=== PATIENT | male | born 1970 | race African-American/Black ===

== ENCOUNTER 2020-08-01 13:10 | Inpatient (IN) ==
[2020-08-01] MEDS ORDERED: MORPHINE 4 MG/1 ML VIAL IV PRN (18:46)
[2020-08-01] MEDS ORDERED: ZALEPLON 5 MG CAPSULE PO PRN (18:46)
[2020-08-01] MEDS ORDERED: DEXTROSE 50% 25 GM/50 ML VIAL IV PRN (18:46)
[2020-08-01] MEDS ORDERED: GLUCAGON 1 MG VIAL IM PRN (18:46)
[2020-08-01 20:10] LABS: Basophils % 0.4 % (0.0-0.8); Eosinophils % 0.4 % (0.00-10.9); Hematocrit 23.4 VOL% (42.0-52.0); Hemoglobin 8.6 GM/DL (14.0-18.0); Immature Granulocytes % 0.4 %; Immature Granulocytes Absolute 0.02 #; Lymphocytes # 1.4 10*3/uL (1.4-4.0); Lymphocytes % 26.8 % (21.2-54.2); Mean Corpuscular HGB Conc 36.8 GM/DL (32-36); Mean Corpuscular Volume 101.3 FL (87-102); Mean Platelet Volume 11.1 FL (9.6-12.0); Monocytes % 15.7 % (1.7-12.7); NRBC # 0.03 10*3/uL; Neutrophils % 56.3 % (38.7-73.9); Platelet Count 69 T/CUMM (130-400); Red Blood Count 2.31 MC/CUMM (3.8-5.5); Red Cell Distribution Width 20.6 % (9.3-17.3); White Blood Count 5.3 T/CUMM (4-12)
[2020-08-01 20:23] LABS: INR 2.1
[2020-08-01 20:33] LABS: Albumin 1.8 G/DL (3.4-5.0); Bilirubin,Total 5.7 MG/DL (0.2-1.0); Calcium 7.4 MG/DL (8.5-10.1); Osmolality,Calculated 262.4 MOS/KG (273-304); Potassium 3.2 MMOL/L (3.5-5.1); Total Protein 6.4 G/DL (6.4-8.3)
[2020-08-01 20:54] LABS: PT Patient Result 21.3 SECS (9.8-11.9)
[2020-08-01] MEDS: PIPERACILLIN/TAZOBACTAM 3,375 MG in SODIUM CHLORIDE 0.9% 100 ML IV SCH (21:26)
[2020-08-01] MEDS: levETIRAcetam 500 MG TABLET PO SCH (21:33)
[2020-08-02] MEDS: LORazepam 2 MG/1 ML VIAL IV PRN ×2 (01:18→04:29)
[2020-08-02] MEDS: POTASSIUM CHLORIDE 20 MEQ TABLET PO PRN ×3 (02:35→11:56)
[2020-08-02] MEDS: PIPERACILLIN/TAZOBACTAM 3,375 MG in SODIUM CHLORIDE 0.9% 100 ML IV SCH ×3 (03:45→18:33)
[2020-08-02] MEDS ORDERED: SODIUM CHLORIDE 0.9% 500 ML IV ONE (04:15)
[2020-08-02 07:01] LABS: Basophils % 0.4 % (0.0-0.8); Eosinophils % 0.2 % (0.00-10.9); Hematocrit 22.8 VOL% (42.0-52.0); Hemoglobin 8.3 GM/DL (14.0-18.0); Immature Granulocytes % 0.5 %; Immature Granulocytes Absolute 0.03 #; Lymphocytes # 1.3 10*3/uL (1.4-4.0); Lymphocytes % 23.8 % (21.2-54.2); Mean Corpuscular HGB Conc 36.4 GM/DL (32-36); Mean Corpuscular Volume 101.8 FL (87-102); Mean Platelet Volume 10.4 FL (9.6-12.0); Monocytes % 14.4 % (1.7-12.7); NRBC # 0.02 10*3/uL; Neutrophils % 60.7 % (38.7-73.9); Red Blood Count 2.24 MC/CUMM (3.8-5.5); Red Cell Distribution Width 20.6 % (9.3-17.3); White Blood Count 5.6 T/CUMM (4-12)
[2020-08-02 07:02] LABS: Platelet Count 69 T/CUMM (130-400)
[2020-08-02 07:08] LABS: INR 2.1; PT Patient Result 21.4 SECS (9.8-11.9)
[2020-08-02 07:19] LABS: Albumin 1.7 G/DL (3.4-5.0); Calcium 7.6 MG/DL (8.5-10.1); Osmolality,Calculated 265.1 MOS/KG (273-304); Potassium 3.3 MMOL/L (3.5-5.1); Total Protein 6.2 G/DL (6.4-8.3)
[2020-08-02 07:25] LABS: Eosinophils 2 % (0-10); Hypochromasia 2+; Lymphocytes 15 % (20-55); Platelet Estimate Decreased; Segmented Neutrophils 75 % (50-85); Total Cells Counted 100
[2020-08-02 08:27] LABS: Folate 4.5 NG/ML (5.4-24.0)
[2020-08-02] MEDS: MULTIVITAMIN (CENTRUM) TABLET PO SCH (10:23)
[2020-08-02] MEDS: FOLIC ACID 1 MG TABLET PO SCH (10:23)
[2020-08-02] MEDS: levETIRAcetam 500 MG TABLET PO SCH ×2 (10:23→20:50)
[2020-08-02] MEDS: THIAMINE 100 MG TABLET PO SCH (10:23)
[2020-08-02] MEDS: SODIUM CHLORIDE 0.9% 1,000 ML IV SCH ×2 (10:25→18:33)
[2020-08-02] MEDS ORDERED: METOPROLOL TARTRATE 25 MG TABLET PO SCH (21:00)
[2020-08-02] MEDS: METOPROLOL TARTRATE 25 MG TABLET PO PRN (22:08)
[2020-08-03] MEDS: PIPERACILLIN/TAZOBACTAM 3,375 MG in SODIUM CHLORIDE 0.9% 100 ML IV SCH ×3 (03:28→18:30)
[2020-08-03 05:19] LABS: Basophils % 0.6 % (0.0-0.8); Eosinophils % 0.4 % (0.00-10.9); Hematocrit 23.1 VOL% (42.0-52.0); Hemoglobin 8.5 GM/DL (14.0-18.0); Immature Granulocytes % 1.1 %; Immature Granulocytes Absolute 0.05 #; Lymphocytes # 1.1 10*3/uL (1.4-4.0); Lymphocytes % 22.6 % (21.2-54.2); Mean Corpuscular HGB Conc 36.8 GM/DL (32-36); Mean Corpuscular Volume 103.6 FL (87-102); Mean Platelet Volume 10.6 FL (9.6-12.0); NRBC # 0.03 10*3/uL; Neutrophils % 61.3 % (38.7-73.9); Red Blood Count 2.23 MC/CUMM (3.8-5.5); Red Cell Distribution Width 21.3 % (9.3-17.3); White Blood Count 4.6 T/CUMM (4-12)
[2020-08-03 05:25] LABS: Platelet Count 59 T/CUMM (130-400)
[2020-08-03 05:35] LABS: Albumin 1.5 G/DL (3.4-5.0); Bilirubin,Total 5.1 MG/DL (0.2-1.0); Calcium 7.6 MG/DL (8.5-10.1); Osmolality,Calculated 264.2 MOS/KG (273-304); Potassium 3.4 MMOL/L (3.5-5.1)
[2020-08-03] MEDS: POTASSIUM CHLORIDE 20 MEQ TABLET PO PRN ×3 (05:39→11:56)
[2020-08-03 05:41] LABS: Lymphocytes 15 % (20-55); Segmented Neutrophils 72 % (50-85); Total Cells Counted 100
[2020-08-03 05:42] LABS: Hypochromasia 2+; Microcytosis 1+; Platelet Estimate Decreased
[2020-08-03] MEDS: SODIUM CHLORIDE 0.9% 1,000 ML IV SCH ×3 (10:03→18:41)
[2020-08-03] MEDS: FOLIC ACID 1 MG TABLET PO SCH (10:04)
[2020-08-03] MEDS: levETIRAcetam 500 MG TABLET PO SCH ×2 (10:04→20:48)
[2020-08-03] MEDS: THIAMINE 100 MG TABLET PO SCH (10:04)
[2020-08-03] MEDS: MULTIVITAMIN (CENTRUM) TABLET PO SCH (10:04)
[2020-08-03] MEDS: prednisoLONE 15 MG/5 ML ORAL.SYR PO SCH (15:01)
[2020-08-03 15:33] LABS: Bacteria,Urine Occasional /HPF (Few); Blood, Urine Large mg/dL (Negative); Glucose,Urine (UA) Negative (Negative); Hyaline Casts,Urine 7 /LPF (0-3); Ketones,Urine 5 mg/dL (Negative); Nitrite,Urine Negative (Negative); Protein,Urine 30 MG/DL; RBC,Urine 408 /HPF (0-4); Squamous Epithelial Cell,Urine Occasional /HPF (0-10); Urine Appearance CLEAR (Clear); Urine Color Amber (Yellow); Urine Specific Gravity 1.031 (1.001-1.035); WBC,Urine 16 /HPF (0-6)
[2020-08-03 15:34] LABS: Bilirubin,Urine Moderate mg/dL (Negative)
[2020-08-04] MEDS ORDERED: ACETAMINOPHEN 325 MG TABLET PO ONE (01:05)
[2020-08-04] MEDS: PIPERACILLIN/TAZOBACTAM 3,375 MG in SODIUM CHLORIDE 0.9% 100 ML IV SCH ×3 (03:34→18:30)
[2020-08-04 05:58] LABS: Basophils % 0.1 % (0.0-0.8); Hematocrit 19.7 VOL% (42.0-52.0); Hemoglobin 7.1 GM/DL (14.0-18.0); Immature Granulocytes % 0.5 %; Immature Granulocytes Absolute 0.04 #; Lymphocytes # 1.2 10*3/uL (1.4-4.0); Lymphocytes % 15.6 % (21.2-54.2); Mean Corpuscular Volume 103.7 FL (87-102); Mean Platelet Volume 10.4 FL (9.6-12.0); Monocytes % 19.5 % (1.7-12.7); NRBC # 0.02 10*3/uL; Neutrophils % 64.3 % (38.7-73.9); Platelet Count 61 T/CUMM (130-400); Red Cell Distribution Width 22.2 % (9.3-17.3); White Blood Count 7.4 T/CUMM (4-12)
[2020-08-04 06:28] LABS: Albumin 1.3 G/DL (3.4-5.0); Bilirubin,Total 4.3 MG/DL (0.2-1.0); Osmolality,Calculated 264.2 MOS/KG (273-304); Potassium 3.2 MMOL/L (3.5-5.1); Total Protein 5.4 G/DL (6.4-8.3)
[2020-08-04 06:51] LABS: Band Neutrophils 1 % (0-10); Eosinophils 1 % (0-10); Hypochromasia 2+; Lymphocytes 10 % (20-55); Segmented Neutrophils 76 % (50-85); Total Cells Counted 100
[2020-08-04 06:52] LABS: Anisocytosis 1+; Macrocytosis 1+; Target Cells Few
[2020-08-04 06:53] LABS: Pappenheimer Bodies Slight; Polychromasia Slight
[2020-08-04 06:54] LABS: Platelet Estimate Decreased
[2020-08-04] MEDS ORDERED: SODIUM CHLORIDE 0.9% 1,000 ML IV PRN (07:20)
[2020-08-04] MEDS: MULTIVITAMIN (CENTRUM) TABLET PO SCH (08:23)
[2020-08-04] MEDS: POTASSIUM CHLORIDE 20 MEQ TABLET PO PRN ×5 (08:23→21:53)
[2020-08-04] MEDS: levETIRAcetam 500 MG TABLET PO SCH ×2 (08:23→21:53)
[2020-08-04] MEDS: FOLIC ACID 1 MG TABLET PO SCH (08:23)
[2020-08-04] MEDS: prednisoLONE 15 MG/5 ML ORAL.SYR PO SCH (08:23)
[2020-08-04] MEDS: THIAMINE 100 MG TABLET PO SCH (08:23)
[2020-08-04] MEDS: SODIUM CHLORIDE 0.9% 1,000 ML IV SCH ×2 (08:24→23:25)
[2020-08-04] MEDS: LACTULOSE 20 GM/30 ML UDCUP PO SCH ×3 (10:19→21:52)
[2020-08-04] MEDS: METOPROLOL TARTRATE 25 MG TABLET PO PRN (10:26)
[2020-08-04] MEDS ORDERED: SODIUM CHLORIDE 0.9% 1,000 ML IV ONE (12:08)
[2020-08-04] MEDS ORDERED: cefTRIAXone 2,000 MG in SODIUM CHLORIDE 0.9% 100 ML IV SCH (12:30)
[2020-08-04 18:28] LABS: Hemoglobin 9.7 GM/DL (14.0-18.0)
[2020-08-05] MEDS ORDERED: ACETAMINOPHEN 325 MG TABLET PO ONE (01:02)
[2020-08-05] MEDS: PIPERACILLIN/TAZOBACTAM 3,375 MG in SODIUM CHLORIDE 0.9% 100 ML IV SCH (03:40)
[2020-08-05 07:16] LABS: Basophils % 0.3 % (0.0-0.8); Hematocrit 28.7 VOL% (42.0-52.0); Hemoglobin 10.2 GM/DL (14.0-18.0); Immature Granulocytes % 0.5 %; Immature Granulocytes Absolute 0.04 #; Lymphocytes # 1.4 10*3/uL (1.4-4.0); Mean Corpuscular HGB Conc 35.5 GM/DL (32-36); Mean Corpuscular Volume 99.3 FL (87-102); Mean Platelet Volume 11.2 FL (9.6-12.0); Neutrophils % 58.2 % (38.7-73.9); Platelet Count 66 T/CUMM (130-400); Red Blood Count 2.89 MC/CUMM (3.8-5.5); Red Cell Distribution Width 22.3 % (9.3-17.3); White Blood Count 7.4 T/CUMM (4-12)
[2020-08-05 07:44] LABS: Albumin 1.4 G/DL (3.4-5.0); Bilirubin,Total 5.6 MG/DL (0.2-1.0); Calcium 7.5 MG/DL (8.5-10.1); Osmolality,Calculated 265.1 MOS/KG (273-304); Potassium 3.8 MMOL/L (3.5-5.1)
[2020-08-05 08:56] LABS: Band Neutrophils 21 % (0-10); Lymphocytes 23 % (20-55); Platelet Estimate Decreased; Segmented Neutrophils 36 % (50-85); Total Cells Counted 100
[2020-08-05 08:57] LABS: Anisocytosis 1+; Hypochromasia Slight; Macrocytosis 2+; Polychromasia Slight; Target Cells 1+
[2020-08-05] MEDS: THIAMINE 100 MG TABLET PO SCH (09:33)
[2020-08-05] MEDS: LACTULOSE 20 GM/30 ML UDCUP PO SCH ×3 (09:33→20:41)
[2020-08-05] MEDS: levETIRAcetam 500 MG TABLET PO SCH ×2 (09:33→20:41)
[2020-08-05] MEDS: MULTIVITAMIN (CENTRUM) TABLET PO SCH (09:33)
[2020-08-05] MEDS: FOLIC ACID 1 MG TABLET PO SCH (09:33)
[2020-08-05] MEDS: prednisoLONE 15 MG/5 ML ORAL.SYR PO SCH (09:34)
[2020-08-05] MEDS: SODIUM CHLORIDE 0.9% 1,000 ML IV SCH ×4 (09:40→19:34)
[2020-08-05] MEDS ORDERED: cefTRIAXone 1,000 MG in SYRINGE 1 EACH IV ONE (10:01)
[2020-08-05] MEDS: cefTRIAXone 2,000 MG in SYRINGE 1 EACH IV SCH (11:32)
[2020-08-05] MEDS: VANCOMYCIN INJ 1,500 MG in SODIUM CHLORIDE 0.9% 500 ML IV SCH (12:54)
[2020-08-06] MEDS: VANCOMYCIN INJ 1,500 MG in SODIUM CHLORIDE 0.9% 500 ML IV SCH ×2 (01:02→11:54)
[2020-08-06] MEDS: ACETAMINOPHEN 325 MG TABLET PO PRN ×2 (03:02→16:52)
[2020-08-06] MEDS: SODIUM CHLORIDE 0.9% 1,000 ML IV SCH ×2 (05:46→16:50)
[2020-08-06 06:26] LABS: Basophils % 0.1 % (0.0-0.8); Eosinophils % 0.1 % (0.00-10.9); Hematocrit 25.5 VOL% (42.0-52.0); Hemoglobin 9.2 GM/DL (14.0-18.0); Immature Granulocytes % 0.9 %; Immature Granulocytes Absolute 0.06 #; Lymphocytes # 1.1 10*3/uL (1.4-4.0); Lymphocytes % 16.8 % (21.2-54.2); Mean Corpuscular HGB Conc 36.1 GM/DL (32-36); Mean Corpuscular Volume 100.4 FL (87-102); Mean Platelet Volume 9.8 FL (9.6-12.0); Monocytes % 22.3 % (1.7-12.7); Neutrophils % 59.8 % (38.7-73.9); Platelet Count 81 T/CUMM (130-400); Red Blood Count 2.54 MC/CUMM (3.8-5.5); Red Cell Distribution Width 22.4 % (9.3-17.3); White Blood Count 6.7 T/CUMM (4-12)
[2020-08-06] MEDS ORDERED: cefTRIAXone 1,000 MG in SYRINGE 1 EACH IV ONE (06:30)
[2020-08-06 06:41] LABS: PT Patient Result 20.9 SECS (9.8-11.9)
[2020-08-06 06:54] LABS: Calcium 7.2 MG/DL (8.5-10.1); Osmolality,Calculated 270.8 MOS/KG (273-304); Potassium 3.1 MMOL/L (3.5-5.1)
[2020-08-06 07:21] LABS: Albumin 1.2 G/DL (3.4-5.0); Bilirubin,Total 3.9 MG/DL (0.2-1.0); Calcium 7.4 MG/DL (8.5-10.1); Potassium 3.1 MMOL/L (3.5-5.1); Total Protein 5.4 G/DL (6.4-8.3)
[2020-08-06 07:30] LABS: Band Neutrophils 24 % (0-10); Lymphocytes 14 % (20-55); Metamyelocytes 1 %; Segmented Neutrophils 43 % (50-85); Total Cells Counted 100
[2020-08-06 07:31] LABS: Anisocytosis 2+; Basophilic Stippling Slight; Macrocytosis 2+; Platelet Estimate Decreased; Smudge Cells 1+; Target Cells 1+
[2020-08-06 07:32] LABS: Hypochromasia Slight
[2020-08-06] MEDS: cefTRIAXone 2,000 MG in SYRINGE 1 EACH IV SCH (11:48)
[2020-08-06] MEDS: POTASSIUM CHLORIDE 20 MEQ TABLET PO PRN (16:51)
[2020-08-06] MEDS: THIAMINE 100 MG TABLET PO SCH (16:51)
[2020-08-06] MEDS: MULTIVITAMIN (CENTRUM) TABLET PO SCH (16:51)
[2020-08-06] MEDS: LACTULOSE 20 GM/30 ML UDCUP PO SCH ×3 (16:52→21:57)
[2020-08-06] MEDS: prednisoLONE 15 MG/5 ML ORAL.SYR PO SCH (16:53)
[2020-08-06] MEDS: levETIRAcetam 500 MG TABLET PO SCH ×2 (16:53→21:57)
[2020-08-06] MEDS: FOLIC ACID 1 MG TABLET PO SCH (16:54)
[2020-08-07] MEDS: VANCOMYCIN INJ 1,500 MG in SODIUM CHLORIDE 0.9% 500 ML IV SCH (00:50)
[2020-08-07 06:25] LABS: Basophils % 0.2 % (0.0-0.8); Hemoglobin 9.4 GM/DL (14.0-18.0); Immature Granulocytes % 0.6 %; Immature Granulocytes Absolute 0.03 #; Lymphocytes # 0.8 10*3/uL (1.4-4.0); Lymphocytes % 14.9 % (21.2-54.2); Mean Corpuscular HGB Conc 34.8 GM/DL (32-36); Mean Corpuscular Volume 102.3 FL (87-102); Mean Platelet Volume 10.4 FL (9.6-12.0); Monocytes % 19.7 % (1.7-12.7); Neutrophils % 64.6 % (38.7-73.9); Platelet Count 85 T/CUMM (130-400); Red Blood Count 2.64 MC/CUMM (3.8-5.5); Red Cell Distribution Width 22.2 % (9.3-17.3)
[2020-08-07 06:31] LABS: INR 1.9; PT Patient Result 19.8 SECS (9.8-11.9)
[2020-08-07 06:40] LABS: Partial Thromboplastin Time 46.2 SECS (23.9-33.8)
[2020-08-07 06:49] LABS: Albumin 1.1 G/DL (3.4-5.0); Bilirubin,Total 3.6 MG/DL (0.2-1.0); Calcium 7.4 MG/DL (8.5-10.1); Osmolality,Calculated 272.8 MOS/KG (273-304); Potassium 3.9 MMOL/L (3.5-5.1); Total Protein 5.9 G/DL (6.4-8.3)
[2020-08-07 06:52] LABS: Hypochromasia 1+; Lymphocytes 13 % (20-55); Macrocytosis 1+; Platelet Estimate Decreased; Segmented Neutrophils 74 % (50-85); Target Cells Few; Total Cells Counted 100
[2020-08-07] MEDS: SODIUM CHLORIDE 0.9% 1,000 ML IV SCH ×2 (08:00→13:51)
[2020-08-07] MEDS: cefTRIAXone 2,000 MG in SYRINGE 1 EACH IV SCH (12:19)
[2020-08-07] MEDS: THIAMINE 100 MG TABLET PO SCH (12:20)
[2020-08-07] MEDS: levETIRAcetam 500 MG TABLET PO SCH ×2 (12:20→20:33)
[2020-08-07] MEDS: FOLIC ACID 1 MG TABLET PO SCH (12:20)
[2020-08-07] MEDS: prednisoLONE 15 MG/5 ML ORAL.SYR PO SCH (12:20)
[2020-08-07] MEDS: MULTIVITAMIN (CENTRUM) TABLET PO SCH (12:20)
[2020-08-07] MEDS: LACTULOSE 20 GM/30 ML UDCUP PO SCH ×3 (12:21→20:33)
[2020-08-07] MEDS ORDERED: PHYTONADIONE 5 MG/5 ML ORAL.SYR PO ONE (18:19)
[2020-08-07] MEDS ORDERED: VANCOMYCIN INJ 1,500 MG in SODIUM CHLORIDE 0.9% 500 ML IV SCH (21:00)
[2020-08-08 05:10] LABS: Hematocrit 28.4 VOL% (42.0-52.0); Hemoglobin 9.9 GM/DL (14.0-18.0); Immature Granulocytes % 0.7 %; Immature Granulocytes Absolute 0.04 #; Lymphocytes % 17.4 % (21.2-54.2); Mean Corpuscular HGB Conc 34.9 GM/DL (32-36); Mean Corpuscular Volume 102.9 FL (87-102); Monocytes % 19.5 % (1.7-12.7); Neutrophils % 62.4 % (38.7-73.9); Platelet Count 113 T/CUMM (130-400); Red Blood Count 2.76 MC/CUMM (3.8-5.5); Red Cell Distribution Width 21.3 % (9.3-17.3); White Blood Count 5.8 T/CUMM (4-12)
[2020-08-08 05:32] LABS: Lymphocytes 13 % (20-55); Platelet Estimate Decreased; Segmented Neutrophils 70 % (50-85); Total Cells Counted 100
[2020-08-08 05:33] LABS: Hypochromasia Slight; Macrocytosis Slight; Target Cells Slight
[2020-08-08 05:44] LABS: Albumin 1.2 G/DL (3.4-5.0); Bilirubin,Total 3.2 MG/DL (0.2-1.0); Calcium 7.7 MG/DL (8.5-10.1); Osmolality,Calculated 273.8 MOS/KG (273-304); Potassium 3.8 MMOL/L (3.5-5.1)
[2020-08-08] MEDS: SODIUM CHLORIDE 0.9% 1,000 ML IV SCH ×2 (08:28→17:41)
[2020-08-08 08:58] LABS: INR 1.6; PT Patient Result 17.2 SECS (9.8-11.9)
[2020-08-08] MEDS: LACTULOSE 20 GM/30 ML UDCUP PO SCH ×3 (10:03→20:28)
[2020-08-08] MEDS: LORazepam 2 MG/1 ML VIAL IV PRN ×2 (10:20→20:28)
[2020-08-08] MEDS: cefTRIAXone 2,000 MG in SYRINGE 1 EACH IV SCH (10:21)
[2020-08-08] MEDS ORDERED: NEOMYCIN/POLYMYXIN IRRIG SOLN 1 ML AMP BLADDERIRR ONE (11:21)
[2020-08-08] MEDS: prednisoLONE 15 MG/5 ML ORAL.SYR PO SCH (12:48)
[2020-08-08] MEDS: FOLIC ACID 1 MG TABLET PO SCH (12:48)
[2020-08-08] MEDS: THIAMINE 100 MG TABLET PO SCH (12:48)
[2020-08-08] MEDS: MULTIVITAMIN (CENTRUM) TABLET PO SCH (12:48)
[2020-08-08] MEDS: levETIRAcetam 500 MG TABLET PO SCH ×2 (12:48→20:27)
[2020-08-09 05:54] LABS: INR 1.6; PT Patient Result 16.3 SECS (9.8-11.9)
[2020-08-09 06:11] LABS: Albumin 1.1 G/DL (3.4-5.0); Bilirubin,Direct 1.88 MG/DL (0.0-0.20); Bilirubin,Indirect 1.3 MG/DL (0.0-1.0); Bilirubin,Total 3.2 MG/DL (0.2-1.0); Calcium 7.8 MG/DL (8.5-10.1); Osmolality,Calculated 281.4 MOS/KG (273-304); Potassium 3.4 MMOL/L (3.5-5.1); Total Protein 6.1 G/DL (6.4-8.3)
[2020-08-09] MEDS: SODIUM BICARB INJ 50 MEQ in SODIUM CHLORIDE 0.45% 1,000 ML IV SCH ×2 (08:59→19:04)
[2020-08-09] MEDS: LACTULOSE 20 GM/30 ML UDCUP PO SCH ×3 (09:00→21:00)
[2020-08-09] MEDS: prednisoLONE 15 MG/5 ML ORAL.SYR PO SCH (09:00)
[2020-08-09] MEDS: levETIRAcetam 500 MG TABLET PO SCH ×2 (09:01→21:00)
[2020-08-09] MEDS: FOLIC ACID 1 MG TABLET PO SCH (09:01)
[2020-08-09] MEDS: THIAMINE 100 MG TABLET PO SCH (09:01)
[2020-08-09] MEDS: MULTIVITAMIN (CENTRUM) TABLET PO SCH (09:01)
[2020-08-09] MEDS: POTASSIUM CHLORIDE 20 MEQ TABLET PO PRN (09:01)
[2020-08-09] MEDS: cefTRIAXone 2,000 MG in SYRINGE 1 EACH IV SCH (10:20)
[2020-08-10 05:42] LABS: Eosinophils % 0.5 % (0.00-10.9); Hematocrit 26.1 VOL% (42.0-52.0); Immature Granulocytes % 1.1 %; Immature Granulocytes Absolute 0.07 #; Lymphocytes # 1.4 10*3/uL (1.4-4.0); Lymphocytes % 23.2 % (21.2-54.2); Mean Corpuscular HGB Conc 34.5 GM/DL (32-36); Mean Corpuscular Volume 104.4 FL (87-102); Mean Platelet Volume 9.5 FL (9.6-12.0); Monocytes % 14.6 % (1.7-12.7); Neutrophils % 60.6 % (38.7-73.9); Platelet Count 142 T/CUMM (130-400); Red Cell Distribution Width 20.6 % (9.3-17.3); White Blood Count 6.2 T/CUMM (4-12)
[2020-08-10 05:46] LABS: INR 1.5; PT Patient Result 15.5 SECS (9.8-11.9)
[2020-08-10] MEDS: SODIUM BICARB INJ 50 MEQ in SODIUM CHLORIDE 0.45% 1,000 ML IV SCH ×2 (05:59→18:13)
[2020-08-10 06:03] LABS: Calcium 7.8 MG/DL (8.5-10.1); Osmolality,Calculated 280.5 MOS/KG (273-304); Potassium 3.2 MMOL/L (3.5-5.1)
[2020-08-10 06:04] LABS: Band Neutrophils 4 % (0-10); Eosinophils 1 % (0-10); Lymphocytes 9 % (20-55); Metamyelocytes 2 %; Segmented Neutrophils 77 % (50-85); Total Cells Counted 100
[2020-08-10 06:06] LABS: Hypochromasia 1+; Macrocytosis 1+
[2020-08-10 06:07] LABS: Target Cells Slight
[2020-08-10 06:09] LABS: Platelet Estimate Adequate; Polychromasia Slight
[2020-08-10] MEDS: LACTULOSE 20 GM/30 ML UDCUP PO SCH ×3 (09:30→21:31)
[2020-08-10] MEDS: levETIRAcetam 500 MG TABLET PO SCH ×2 (09:30→21:31)
[2020-08-10] MEDS: FOLIC ACID 1 MG TABLET PO SCH (09:30)
[2020-08-10] MEDS: THIAMINE 100 MG TABLET PO SCH (09:30)
[2020-08-10] MEDS: MULTIVITAMIN (CENTRUM) TABLET PO SCH (09:32)
[2020-08-10] MEDS: cefTRIAXone 2,000 MG in SYRINGE 1 EACH IV SCH (10:08)
[2020-08-10] MEDS: POTASSIUM CHLORIDE 20 MEQ TABLET PO PRN ×3 (14:34→21:31)
[2020-08-10] MEDS: prednisoLONE 15 MG/5 ML ORAL.SYR PO SCH (14:34)
[2020-08-11] MEDS: POTASSIUM CHLORIDE 20 MEQ TABLET PO PRN (01:46)
[2020-08-11] MEDS: SODIUM BICARB INJ 50 MEQ in SODIUM CHLORIDE 0.45% 1,000 ML IV SCH (03:52)
[2020-08-11 05:36] LABS: INR 1.4; PT Patient Result 14.7 SECS (9.8-11.9)
[2020-08-11 06:09] LABS: Albumin 1.1 G/DL (3.4-5.0); Bilirubin,Total 2.5 MG/DL (0.2-1.0); Calcium 7.8 MG/DL (8.5-10.1); Osmolality,Calculated 278.7 MOS/KG (273-304); Potassium 4.7 MMOL/L (3.5-5.1); Total Protein 6.1 G/DL (6.4-8.3)
[2020-08-11 08:40] LABS: Hemoglobin 8.7 GM/DL (14.0-18.0)
[2020-08-11] MEDS: cefTRIAXone 2,000 MG in SYRINGE 1 EACH IV SCH (10:02)
[2020-08-11] MEDS: MULTIVITAMIN (CENTRUM) TABLET PO SCH (10:06)
[2020-08-11] MEDS: FOLIC ACID 1 MG TABLET PO SCH (10:07)
[2020-08-11] MEDS: levETIRAcetam 500 MG TABLET PO SCH ×3 (10:07→23:40)
[2020-08-11] MEDS: THIAMINE 100 MG TABLET PO SCH (10:07)
[2020-08-11] MEDS: LACTULOSE 20 GM/30 ML UDCUP PO SCH ×4 (10:07→23:40)
[2020-08-11] MEDS: prednisoLONE 15 MG/5 ML ORAL.SYR PO SCH (10:09)
[2020-08-11] MEDS: LACTATED RINGERS 1,000 ML IV SCH (16:31)
[2020-08-11] MEDS: chlordiazePOXIDE 10 MG CAPSULE PO SCH ×3 (16:33→23:40)
[2020-08-11] MEDS: PROPRANOLOL 10 MG TABLET PO SCH ×3 (16:33→23:40)
[2020-08-12] MEDS: LACTATED RINGERS 1,000 ML IV SCH ×2 (03:24→18:00)
[2020-08-12] MEDS: MULTIVITAMIN (CENTRUM) TABLET PO SCH (10:29)
[2020-08-12] MEDS: LACTULOSE 20 GM/30 ML UDCUP PO SCH ×3 (10:29→22:49)
[2020-08-12] MEDS: FOLIC ACID 1 MG TABLET PO SCH (10:29)
[2020-08-12] MEDS: levETIRAcetam 500 MG TABLET PO SCH ×2 (10:30→22:50)
[2020-08-12] MEDS: PROPRANOLOL 10 MG TABLET PO SCH ×3 (10:30→22:50)
[2020-08-12] MEDS: prednisoLONE 15 MG/5 ML ORAL.SYR PO SCH (10:30)
[2020-08-12] MEDS: chlordiazePOXIDE 10 MG CAPSULE PO SCH ×3 (10:30→22:50)
[2020-08-12] MEDS: THIAMINE 100 MG TABLET PO SCH (10:31)
[2020-08-12] MEDS: cefTRIAXone 2,000 MG in SYRINGE 1 EACH IV SCH (10:38)
[2020-08-12 12:14] LABS: Bilirubin,Urine Negative (Negative); Blood, Urine Negative (Negative); Glucose,Urine (UA) Negative (Negative); Ketones,Urine 5 mg/dL (Negative); Nitrite,Urine Negative (Negative); Protein,Urine Negative; Urine Appearance CLEAR (Clear); Urine Specific Gravity 1.018 (1.001-1.035); Urine Urobilinogen < 2.0 EU/DL (0.2-1.0)
[2020-08-12 12:18] LABS: Urine Color Yellow (Yellow)
[2020-08-13 06:04] LABS: Basophils % 0.2 % (0.0-0.8); Eosinophils # 0.1 10*3/uL (0.0-0.87); Eosinophils % 0.8 % (0.00-10.9); Hematocrit 26.1 VOL% (42.0-52.0); Hemoglobin 8.5 GM/DL (14.0-18.0); Immature Granulocytes % 1.5 %; Immature Granulocytes Absolute 0.13 #; Lymphocytes # 1.4 10*3/uL (1.4-4.0); Mean Corpuscular HGB Conc 32.6 GM/DL (32-36); Mean Corpuscular Volume 109.7 FL (87-102); Mean Platelet Volume 9.5 FL (9.6-12.0); Monocytes % 10.2 % (1.7-12.7); Neutrophils % 71.3 % (38.7-73.9); Platelet Count 173 T/CUMM (130-400); Red Blood Count 2.38 MC/CUMM (3.8-5.5); Red Cell Distribution Width 20.3 % (9.3-17.3); White Blood Count 8.5 T/CUMM (4-12)
[2020-08-13] MEDS: LACTATED RINGERS 1,000 ML IV SCH ×2 (06:05→20:24)
[2020-08-13 06:39] LABS: Albumin 1.2 G/DL (3.4-5.0); Bilirubin,Total 2.2 MG/DL (0.2-1.0); Calcium 7.9 MG/DL (8.5-10.1); Osmolality,Calculated 278.5 MOS/KG (273-304); Potassium 3.4 MMOL/L (3.5-5.1); Total Protein 5.8 G/DL (6.4-8.3)
[2020-08-13] MEDS ORDERED: POTASSIUM CHLORIDE 20 MEQ TABLET PO ONE (08:55)
[2020-08-13] MEDS: LACTULOSE 20 GM/30 ML UDCUP PO SCH ×3 (09:31→21:46)
[2020-08-13] MEDS: levETIRAcetam 500 MG TABLET PO SCH ×2 (09:31→21:46)
[2020-08-13] MEDS: FOLIC ACID 1 MG TABLET PO SCH (09:31)
[2020-08-13] MEDS: THIAMINE 100 MG TABLET PO SCH (09:31)
[2020-08-13] MEDS: chlordiazePOXIDE 10 MG CAPSULE PO SCH ×2 (09:31→21:46)
[2020-08-13] MEDS: PROPRANOLOL 10 MG TABLET PO SCH ×3 (09:31→21:46)
[2020-08-13] MEDS: MULTIVITAMIN (CENTRUM) TABLET PO SCH (09:31)
[2020-08-13] MEDS: prednisoLONE 15 MG/5 ML ORAL.SYR PO SCH (09:33)
[2020-08-14] MEDS ORDERED: diphenhydrAMINE 50 MG/1 ML VIAL IV ONE (08:00)
[2020-08-14] MEDS ORDERED: LORazepam 2 MG/1 ML VIAL IV ONE (08:00)
[2020-08-14] MEDS: prednisoLONE 15 MG/5 ML ORAL.SYR PO SCH (08:42)
[2020-08-14] MEDS: FOLIC ACID 1 MG TABLET PO SCH (08:43)
[2020-08-14] MEDS: levETIRAcetam 500 MG TABLET PO SCH ×2 (08:43→20:29)
[2020-08-14] MEDS: chlordiazePOXIDE 10 MG CAPSULE PO SCH ×2 (08:43→20:29)
[2020-08-14] MEDS: LACTULOSE 20 GM/30 ML UDCUP PO SCH ×3 (08:43→20:28)
[2020-08-14] MEDS: THIAMINE 100 MG TABLET PO SCH (08:43)
[2020-08-14] MEDS: PROPRANOLOL 10 MG TABLET PO SCH ×3 (08:43→20:29)
[2020-08-14] MEDS: CYANOCOBALAMIN 100 MCG TABLET PO SCH (08:43)
[2020-08-14] MEDS: MULTIVITAMIN (CENTRUM) TABLET PO SCH (08:43)
[2020-08-14] MEDS: LACTATED RINGERS 1,000 ML IV SCH ×2 (08:44→16:21)
[2020-08-15 07:07] LABS: Basophils % 0.3 % (0.0-0.8); Eosinophils # 0.1 10*3/uL (0.0-0.87); Eosinophils % 1.1 % (0.00-10.9); Hematocrit 26.5 VOL% (42.0-52.0); Hemoglobin 8.4 GM/DL (14.0-18.0); Immature Granulocytes % 0.5 %; Immature Granulocytes Absolute 0.03 #; Lymphocytes # 1.2 10*3/uL (1.4-4.0); Lymphocytes % 18.6 % (21.2-54.2); Mean Corpuscular HGB Conc 31.7 GM/DL (32-36); Mean Corpuscular Volume 111.8 FL (87-102); Mean Platelet Volume 8.7 FL (9.6-12.0); Monocytes % 9.5 % (1.7-12.7); Platelet Count 145 T/CUMM (130-400); Red Blood Count 2.37 MC/CUMM (3.8-5.5); White Blood Count 6.6 T/CUMM (4-12)
[2020-08-15 07:24] LABS: Calcium 8.1 MG/DL (8.5-10.1); Osmolality,Calculated 277.5 MOS/KG (273-304); Potassium 3.6 MMOL/L (3.5-5.1)
[2020-08-15 07:27] LABS: Eosinophils 1 % (0-10); Lymphocytes 12 % (20-55); Platelet Estimate Adequate; Segmented Neutrophils 81 % (50-85); Total Cells Counted 100
[2020-08-15 07:28] LABS: Hypochromasia 1+; Microcytosis 1+; Ovalocytes Slight
[2020-08-15] MEDS: LACTATED RINGERS 1,000 ML IV SCH (08:32)
[2020-08-15] MEDS: THIAMINE 100 MG TABLET PO SCH (08:33)
[2020-08-15] MEDS: chlordiazePOXIDE 10 MG CAPSULE PO SCH (08:33)
[2020-08-15] MEDS: levETIRAcetam 500 MG TABLET PO SCH (08:33)
[2020-08-15] MEDS: MULTIVITAMIN (CENTRUM) TABLET PO SCH (08:33)
[2020-08-15] MEDS: CYANOCOBALAMIN 100 MCG TABLET PO SCH (08:33)
[2020-08-15] MEDS: LACTULOSE 20 GM/30 ML UDCUP PO SCH ×2 (08:33→15:03)
[2020-08-15] MEDS: PROPRANOLOL 10 MG TABLET PO SCH ×2 (08:33→15:03)
[2020-08-15] MEDS: prednisoLONE 15 MG/5 ML ORAL.SYR PO SCH (08:33)
[2020-08-15] MEDS: FOLIC ACID 1 MG TABLET PO SCH (08:33)
[2020-08-15 08:42] LABS: % Iron Saturation 31.4 % (18-50); Ferritin 838.6 ng/ml (26-388)
[2020-08-15 09:55] LABS: Folate 13.3 NG/ML (5.38-24.0); Vitamin B12 > 2000 PG/ML (211-911)
[2020-08-15 11:31] VITALS: BP 112/76
[2020-08-15] MEDS ORDERED: FERROUS SULFATE 325 MG TABLET PO SCH (21:00)
== END 2020-08-15 16:00 | disposition home or self-care (01) | DRG 432 ==
LOC: SUATTDRO 18:20 → N.3E 18:20
PROVIDERS: ADMIT Internal Medicine; ATTEND Internal Medicine